=== PATIENT | male | born 1940 | race Caucasian/White ===

== ENCOUNTER → 2022-12-18 | Outpatient (CLI) | payer OTHER ==
[~2022-12-18] MED LIST: ATOR10 PO; AZIT500 PO; CEFD300 PO; DILT120ERA PO; ELIQUIS5 M2 PO; Keppra100 MG/1 M PO
[2022-12-18 15:42] LABS: BASOPHILS ABSOLUTE AUTO 0.03 K/mm3 (0.00-0.23); BASOPHILS PERCENT AUTO 1 % (0-2); EOSINOPHILS ABSOLUTE AUTO 0.14 K/mm3 (0.00-0.68); EOSINOPHILS PERCENT AUTO 2 % (0-6); Hematocrit 38.4 % (37.0-53.0); Hemoglobin 12.6 g/dL (13.5-17.5); IMMATURE GRAN ABSOLUTE AUTO 0.01 K/mm3 (0.00-0.10); IMMATURE GRAN PERCENT AUTO 0 % (0-1); LYMPHOCYTES ABSOLUTE AUTO 1.23 K/mm3 (0.84-5.20); LYMPHOCYTES PERCENT AUTO 21 % (21-46); MONOCYTES ABSOLUTE AUTO 0.51 K/mm3 (0.16-1.47); MONOCYTES PERCENT AUTO 9 % (4-13); Mean Corpuscular HGB 30.9 pg (26.0-34.0); Mean Corpuscular HGB Conc 32.8 g/dL (31.5-36.5); Mean Corpuscular Volume 94 fL (80-100); Mean Platelet Volume 10.7 fL (9.1-12.4); NEUTROPHILS ABSOLUTE AUTO 3.98 K/mm3 (1.96-9.15); NEUTROPHILS PERCENT AUTO 68 % (41-73); Platelet Count 181 K/mm3 (150-400); RDW Coefficient Variation 13.6 % (11.7-14.2); RDW Standard Deviation 46.5 fL (35.1-46.3); Red Blood Cell Count 4.08 M/mm3 (4.30-5.90)
[2022-12-18 16:01] LABS: Albumin, Blood 3.3 g/dL (3.4-5.0); Albumin/Globulin Ratio 0.8 (0.8-1.8); Bilirubin, Total 0.4 mg/dL (0.1-1.0); Bun/Creatinine Ratio 33.3 (12.0-20.0); Calcium, Blood 9.6 mg/dL (8.5-10.1); Creatinine, Blood 0.9 mg/dL (0.60-1.20); Globulin, Blood 3.9 g/dL (2.2-4.0); Potassium, Blood 4.5 mmol/L (3.5-5.5); Total Protein, Blood 7.2 g/dL (6.4-8.2)
== END | disposition home or self-care (01) ==
LOC: LAB SHORT 15:36
PROVIDERS: Family Medicine
DX: R55 Syncope and collapse (principal)
CPT/HCPCS: 80053; 84484; 85025

== ENCOUNTER 2024-12-04 13:45 | Emergency (ER) | payer OTHER ==
[~2024-12-04] VITALS: Ht 172.7 cm; Wt 69.8 kg
[2024-12-04 13:58] VITALS: BP 132/74
== END 2024-12-04 16:12 | disposition home or self-care (01) ==
LOC: ER 13:45
DX: K94.23 Gastrostomy malfunction (principal); I10 Essential (primary) hypertension; E78.5 Hyperlipidemia, unspecified; Z86.73 Personal history of transient ischemic attack (TIA), and cerebral infarction without residual deficits; Z79.899 Other long term (current) drug therapy; Z88.0 Allergy status to penicillin
CPT/HCPCS: 43762; 99282-25

== ENCOUNTER 2024-12-07 14:06 | Emergency (ER) | payer OTHER ==
[~2024-12-07] VITALS: Ht 172.7 cm; Wt 72.1 kg
[2024-12-07 14:19] VITALS: BP 140/75
== END 2024-12-07 15:31 | disposition home or self-care (01) ==
LOC: ER 14:06
DX: Z43.1 Encounter for attention to gastrostomy (principal); I10 Essential (primary) hypertension; I48.91 Unspecified atrial fibrillation; Z79.01 Long term (current) use of anticoagulants; Z79.899 Other long term (current) drug therapy; Z85.01 Personal history of malignant neoplasm of esophagus
CPT/HCPCS: 49465; 99283-25; Q9963

== ENCOUNTER 2024-12-11 13:41 | Emergency (ER) | payer OTHER ==
[~2024-12-11] VITALS: Ht 170.2 cm; Wt 71.2 kg
[2024-12-11 14:27] LABS: BASOPHILS ABSOLUTE AUTO 0.02 K/mm3 (0.00-0.23); BASOPHILS PERCENT AUTO 0 % (0-2); EOSINOPHILS ABSOLUTE AUTO 0.06 K/mm3 (0.00-0.68); EOSINOPHILS PERCENT AUTO 1 % (0-6); Hematocrit 40.8 % (37.0-53.0); Hemoglobin 13.4 g/dL (13.5-17.5); IMMATURE GRAN ABSOLUTE AUTO 0.01 K/mm3 (0.00-0.10); IMMATURE GRAN PERCENT AUTO 0 % (0-1); LYMPHOCYTES ABSOLUTE AUTO 0.95 K/mm3 (0.84-5.20); LYMPHOCYTES PERCENT AUTO 14 % (21-46); MONOCYTES ABSOLUTE AUTO 0.56 K/mm3 (0.16-1.47); MONOCYTES PERCENT AUTO 8 % (4-13); Mean Corpuscular HGB 30.7 pg (26.0-34.0); Mean Corpuscular HGB Conc 32.8 g/dL (31.5-36.5); Mean Corpuscular Volume 93 fL (80-100); Mean Platelet Volume 10.3 fL (9.1-12.4); NEUTROPHILS ABSOLUTE AUTO 5.21 K/mm3 (1.96-9.15); NEUTROPHILS PERCENT AUTO 77 % (41-73); Platelet Count 213 K/mm3 (150-400); RDW Coefficient Variation 13.8 % (11.7-14.2); RDW Standard Deviation 47.8 fL (35.1-46.3); Red Blood Cell Count 4.37 M/mm3 (4.30-5.90); White Blood Cell Count 6.81 K/mm3 (4.00-11.30)
[2024-12-11 14:51] LABS: Albumin, Blood 3.3 g/dL (3.4-5.0); Albumin/Globulin Ratio 0.9 (0.8-1.8); Bilirubin, Total 0.5 mg/dL (0.1-1.0); Bun/Creatinine Ratio 36.1 (12.0-20.0); Calcium, Blood 8.8 mg/dL (8.5-10.1); Creatinine, Blood 0.78 mg/dL (0.60-1.20); Globulin, Blood 3.8 g/dL (2.2-4.0); Potassium, Blood 4.3 mmol/L (3.5-5.5); Total Protein, Blood 7.1 g/dL (6.4-8.2)
[2024-12-11 17:06] VITALS: BP 116/62
== END 2024-12-11 17:15 | disposition home or self-care (01) ==
LOC: ER 13:41
PROVIDERS: Student in an Organized Health Care Education/Training Program
DX: I95.9 Hypotension, unspecified (principal); Z88.1 Allergy status to other antibiotic agents; Z79.01 Long term (current) use of anticoagulants; Z79.899 Other long term (current) drug therapy; I48.91 Unspecified atrial fibrillation; E78.5 Hyperlipidemia, unspecified
CPT/HCPCS: 71046; 80053; 83880; 84484; 85025; 93005; 93010; 99285-25

== ENCOUNTER → 2024-12-11 | Outpatient (CLI) | payer MEDICARE, OTHER ==
[2024-12-11 12:51] LABS: BASOPHILS ABSOLUTE AUTO 0.03 K/mm3 (0.00-0.23); BASOPHILS PERCENT AUTO 1 % (0-2); EOSINOPHILS ABSOLUTE AUTO 0.05 K/mm3 (0.00-0.68); EOSINOPHILS PERCENT AUTO 1 % (0-6); Hematocrit 39.6 % (37.0-53.0); Hemoglobin 13.2 g/dL (13.5-17.5); IMMATURE GRAN ABSOLUTE AUTO 0.01 K/mm3 (0.00-0.10); IMMATURE GRAN PERCENT AUTO 0 % (0-1); LYMPHOCYTES PERCENT AUTO 12 % (21-46); MONOCYTES ABSOLUTE AUTO 0.55 K/mm3 (0.16-1.47); MONOCYTES PERCENT AUTO 8 % (4-13); Mean Corpuscular HGB 30.9 pg (26.0-34.0); Mean Corpuscular HGB Conc 33.3 g/dL (31.5-36.5); Mean Corpuscular Volume 93 fL (80-100); Mean Platelet Volume 10.7 fL (9.1-12.4); NEUTROPHILS ABSOLUTE AUTO 5.15 K/mm3 (1.96-9.15); NEUTROPHILS PERCENT AUTO 78 % (41-73); Platelet Count 216 K/mm3 (150-400); RDW Coefficient Variation 14.2 % (11.7-14.2); RDW Standard Deviation 47.6 fL (35.1-46.3); Red Blood Cell Count 4.27 M/mm3 (4.30-5.90); White Blood Cell Count 6.59 K/mm3 (4.00-11.30)
[2024-12-11 13:04] LABS: Albumin, Blood 3.1 g/dL (3.4-5.0); Albumin/Globulin Ratio 0.8 (0.8-1.8); Bilirubin, Total 0.5 mg/dL (0.1-1.0); Bun/Creatinine Ratio 31.5 (12.0-20.0); Calcium, Blood 9.3 mg/dL (8.5-10.1); Creatinine, Blood 0.92 mg/dL (0.60-1.20); Magnesium, Blood 2.4 mg/dL (1.6-2.4); Potassium, Blood 5.6 mmol/L (3.5-5.5); Total Protein, Blood 7.1 g/dL (6.4-8.2)
== END | disposition home or self-care (01) ==
LOC: LAB 12:48 → LAB SHORT 12:48
PROVIDERS: Physician Assistant
DX: I95.9 Hypotension, unspecified (principal); R53.83 Other fatigue; R03.1 Nonspecific low blood-pressure reading
CPT/HCPCS: 80053; 83735; 84484; 85025

== ENCOUNTER 2025-01-06 20:41 | Inpatient (IN) | payer OTHER ==
[~2025-01-06] VITALS: Ht 165.1 cm; Wt 74.0 kg
[~2025-01-06 20:41] MED LIST changes: -Keppra100 MG/1 M PO; +LEVE500 PO
[2025-01-06 21:21] LABS: BASOPHILS ABSOLUTE AUTO 0.01 K/mm3 (0.00-0.23); BASOPHILS PERCENT AUTO 0 % (0-2); EOSINOPHILS ABSOLUTE AUTO 0.03 K/mm3 (0.00-0.68); EOSINOPHILS PERCENT AUTO 0 % (0-6); Hematocrit 37.8 % (37.0-53.0); Hemoglobin 12.3 g/dL (13.5-17.5); IMMATURE GRAN ABSOLUTE AUTO 0.03 K/mm3 (0.00-0.10); IMMATURE GRAN PERCENT AUTO 0 % (0-1); LYMPHOCYTES ABSOLUTE AUTO 0.72 K/mm3 (0.84-5.20); LYMPHOCYTES PERCENT AUTO 8 % (21-46); MONOCYTES ABSOLUTE AUTO 0.94 K/mm3 (0.16-1.47); MONOCYTES PERCENT AUTO 10 % (4-13); Mean Corpuscular HGB 30.3 pg (26.0-34.0); Mean Corpuscular HGB Conc 32.5 g/dL (31.5-36.5); Mean Corpuscular Volume 93 fL (80-100); Mean Platelet Volume 10.2 fL (9.1-12.4); NEUTROPHILS ABSOLUTE AUTO 7.56 K/mm3 (1.96-9.15); NEUTROPHILS PERCENT AUTO 81 % (41-73); Platelet Count 216 K/mm3 (150-400); RDW Standard Deviation 47.9 fL (35.1-46.3); Red Blood Cell Count 4.06 M/mm3 (4.30-5.90); White Blood Cell Count 9.29 K/mm3 (4.00-11.30)
[2025-01-06 21:40] LABS: Albumin, Blood 3.3 g/dL (3.4-5.0); Albumin/Globulin Ratio 0.9 (0.8-1.8); Bilirubin, Total 0.5 mg/dL (0.1-1.0); Bun/Creatinine Ratio 53.2 (12.0-20.0); Calcium, Blood 9.1 mg/dL (8.5-10.1); Creatinine, Blood 0.68 mg/dL (0.60-1.20); Globulin, Blood 3.8 g/dL (2.2-4.0); Potassium, Blood 4.4 mmol/L (3.5-5.5); Total Protein, Blood 7.1 g/dL (6.4-8.2)
[2025-01-07] MEDS ORDERED: Azithromycin 500 MG in NS 250 ML IV ONE (01:25)
[2025-01-07] MEDS ORDERED: Ipratropium/Albuterol SulF 2.5-0.5MG/3 ML Amp INH ONE (01:25)
[2025-01-07] MEDS ORDERED: CefTRIAXone Sodium 1,000 MG in NS 50 ML IV ONE (01:25)
[2025-01-07] MEDS ORDERED: Bisacodyl 10 MG Supp PR PRN (04:20)
[2025-01-07] MEDS ORDERED: Ipratropium/Albuterol SulF 2.5-0.5MG/3 ML Amp INH SCH (04:20)
[2025-01-07] MEDS ORDERED: CefTRIAXone Sodium 1,000 MG in NS 100 ML IV ONE (05:55)
[2025-01-07 06:00] VITALS: BP 127/77
[2025-01-07] MEDS ORDERED: NS 250 ML IV PRN (06:25)
--- NOTE | 2025-01-07 06:29 | NUR ---
SHIFT SUMMARY PT UP FROM ER AT 0534 THIS AM. PT SOB WTIH INCREASED WORK OF BREATHING, AUDIBLE CRACKLES HEARD. PT UNABLE TO CLEAR ANY SECRETIONS WITH YANKOUR. RT CALLED AND DEEP SUCTIONED PT FOR THICK WILSON SECRETIONS. RESPIRATORY PANEL AND SPUTUM CULTURE SENT TO LAB. PT UNABLE TO SAY MORE THAN 1-2 WORDS DUE TO WORK OF BREATHING. PT WITH HOB ELEVATED, SITTER AT BEDSIDE TO ASSURE HIS O2 REMAIANS ON. PT CURRENTLY ON 7L HIGH FLOW NC WITH SATS > 94%. RESPIRATIONS 26-32 BPM. CREDIT REPORT CHECKER NOTIFIED OF MEWS SCORE OF 4 UPON ADMISSION. SEIZURE PADS PLACED ON BED FOR HX OF SEIZURES. BED IN LOWEST POSITION, CALL LIGHT WITHIN REACH, SIDERAILS UP X2.
[2025-01-07 08:38] LABS: Adenovirus Not Detected (NOT DETECT); Coronavirus 229E Not Detected (NOT DETECT); Coronavirus HKU1 Not Detected (NOT DETECT); Coronavirus NL63 Not Detected (NOT DETECT); Coronavirus OC43 Not Detected (NOT DETECT); Human Metapneumovirus Not Detected (NOT DETECT); Human Rhinovirus/Enterovirus Not Detected (NOT DETECT); Influenza A/2009-H1 Not Detected (NOT DETECT); Influenza A/H1 Not Detected (NOT DETECT); Influenza A/H3 Not Detected (NOT DETECT); Influenza B Not Detected (NOT DETECT); Parainfluenza Virus 1 Not Detected (NOT DETECT); Parainfluenza Virus 2 Not Detected (NOT DETECT); Parainfluenza Virus 3 Not Detected (NOT DETECT); SARS-Cov-2 (COVID-19), BioFire Not Detected (NOT DETECT)
[2025-01-07 08:39] LABS: Bordetella pertussis Not Detected (NOT DETECT); Chlamydophila pneumoniae Not Detected (NOT DETECT); Mycoplasma pneumoniae Not Detected (NOT DETECT); Parainfluenza Virus 4 Not Detected (NOT DETECT); Respiratory Syncytial Virus Not Detected (NOT DETECT)
[2025-01-07] MEDS ORDERED: Apixaban 5 MG Tab PO SCH (09:00)
[2025-01-07] MEDS ORDERED: Atorvastatin 40 MG Tab PO SCH (09:00)
[2025-01-07] MEDS ORDERED: LevETIRAcetam 100 MG/ML 5ML ORAL SYR PO SCH (09:00)
[2025-01-07] MEDS ORDERED: dilTIAZem HCL 120 MG CAP.CD PO SCH (09:00)
[2025-01-07] MEDS ORDERED: Sennosides 8.6 MG Tab PO SCH (09:00)
[2025-01-07] MEDS ORDERED: Doxycycline Hyclate 100 MG TAB PO SCH (11:00)
[2025-01-07] MEDS ORDERED: Magnesium Hydroxide Conc 10 ML UDC PT PRN (12:05)
[2025-01-07] MEDS ORDERED: Docusate Sodium Liquid 100 MG UDC PT PRN (12:05)
[2025-01-07] MEDS ORDERED: EPINEPHrine HCL 11.25 MG/0.5 ML VIAL INH SCH (12:30)
[2025-01-07] MEDS ORDERED: VITAMIN D5000 UNIT PO (13:40)
[2025-01-07] MEDS ORDERED: ACET325 PO (13:40)
[2025-01-07] MEDS ORDERED: EPINEPHrine HCL 11.25 MG/0.5 ML VIAL INH PRN (14:20)
[2025-01-07 14:26] VITALS: BP 137/68
--- NOTE | 2025-01-07 15:15 | NUR ---
AT APPROX 1330 PT ASPIRATED ON HIS TUBE FEED. THE TUBE FEED WAS IMMEDIATELY STOPPED, RT TO SUCTION TUBE FEEDING OUT OF LUNGS. PT MEDICATED PER EMAR. PT VERBALIZED HE FELT LIKE HE WAS RUNNING A FEVER. TEMP 100.3. MD NOTIFIED OF ASPIRATION AND ELEVATED TEMPERATURE. CARE CONTINUES-TUBE FEED REMAINS OFF.
[2025-01-07] MEDS ORDERED: Acetaminophen 325 MG TABLET PT PRN (16:55)
--- NOTE | 2025-01-07 18:05 | NUR ---
SHIFT NOTE: PT A/OX4 ABLE TO MAKE NEEDS KNOWN. HE IS IMPULSIVE AND GETS OUT OF BED WITHOUT ASSISTANCE. THIS RN HAS EDUCATED ON NEED TO CALL FOR ASSISTANCE TO AVOID FALLS. BED ALARM ON FOR SAFETY. HE IS HARD TO UNDERSTAND DUE TO A SOFT RASPY VOICE. PT HAS SUCTION SET UP FOR THICK SECRETIONS. HE HAS A PRODUCTIVE COUGH BUT HAS TROUBLE GETTING IT UP. HE WAS TITRATED FROM 7L TO 4L NC TO MAINTAIN SPO2>90%. HE IS CONT AND AMBULATES TO THE BATHROOM TO VOID WITH 1P ASSITANCE. AND SON AT BEDSIDE AND ARE UPDATED ON PLAN OF CARE.
[2025-01-07 19:16] VITALS: BP 139/77
[2025-01-07] MEDS ORDERED: Protein Supplement 30 ML UD PT SCH (21:00)
[2025-01-07] MEDS ORDERED: LevETIRAcetam 100 MG/ML 5ML ORAL SYR PT SCH (21:00)
[2025-01-07] MEDS ORDERED: Azithromycin 500 MG in NS 250 ML IV SCH (21:00)
[2025-01-07] MEDS ORDERED: LevETIRAcetam 500 MG Tab PO SCH (21:00)
[2025-01-08] MEDS ORDERED: LORazepam 2 MG/ML 1ML Injection IV ONE (00:50)
[2025-01-08 04:10] VITALS: BP 95/63
--- NOTE | 2025-01-08 05:26 | NUR ---
SHIFT SUMMARY PT SLEPT INTERMITTENTLY DURING THE NIGHT. RESTLESS AND FIDGETY AT TIMES WHEN AWAKE. PT DEEP SUCTIONED PER RT X2 FOR C/O DIFFICULTY BREATHING AND FOR DESATURATION. PT WITH INCREASED RESTLESSLESS AND REQUESTING SOMETHING TO HELP HIM REST AT 0100- ATIVAN ORDERED AND GIVEN WITH PT ABLE TO REST, BUT DESATTED AFTERWARDS DUE TO TONGUE PARTIALLY OBSTRUCTING AIRWAY. PT REPOSITIONED, O2 INCREASED FROM 4L TO 7L, AND RT CAME TO EVALUATE PT. RT RECOMMENDED TRYING NASAL TRUMPET AND IF THAT NOT EFFECTIVE TO TRY BIPAP. DECK ENGINEER PROVIDER AGREED TO PLAN AND NASAL TRUMPET/ OXYMASK PLACED PER RT WITH IMPROVED RESPIRATIONS. O2 DOWN TO 4LNC. PT MORE AWAKE AT 0430 AND NASAL TRUMPET REMOVED AT 0500 PER RT. PT BACK TO 4LNC. LUNGS CONTINUE TO HAVE MOIST CRACKLES. BED IN LOWEST POSITION, BED ALARM ON, YANKOUR SUCTION AND CALL LIGHT WITHIN REACH, SIDERAILS UP X2.
[2025-01-08] MEDS ORDERED: CefTRIAXone Sodium 2,000 MG in NS 100 ML IV SCH (06:00)
[2025-01-08 06:11] LABS: BASOPHILS ABSOLUTE AUTO 0.02 K/mm3 (0.00-0.23); BASOPHILS PERCENT AUTO 0 % (0-2); EOSINOPHILS ABSOLUTE AUTO 0.01 K/mm3 (0.00-0.68); EOSINOPHILS PERCENT AUTO 0 % (0-6); Hematocrit 34.5 % (37.0-53.0); Hemoglobin 11.3 g/dL (13.5-17.5); IMMATURE GRAN ABSOLUTE AUTO 0.03 K/mm3 (0.00-0.10); IMMATURE GRAN PERCENT AUTO 0 % (0-1); LYMPHOCYTES ABSOLUTE AUTO 0.52 K/mm3 (0.84-5.20); LYMPHOCYTES PERCENT AUTO 5 % (21-46); MONOCYTES ABSOLUTE AUTO 0.74 K/mm3 (0.16-1.47); MONOCYTES PERCENT AUTO 7 % (4-13); Mean Corpuscular HGB 31.4 pg (26.0-34.0); Mean Corpuscular HGB Conc 32.8 g/dL (31.5-36.5); Mean Corpuscular Volume 96 fL (80-100); Mean Platelet Volume 10.7 fL (9.1-12.4); NEUTROPHILS ABSOLUTE AUTO 8.83 K/mm3 (1.96-9.15); NEUTROPHILS PERCENT AUTO 87 % (41-73); Platelet Count 193 K/mm3 (150-400); RDW Coefficient Variation 14.3 % (11.7-14.2); RDW Standard Deviation 50.4 fL (35.1-46.3); White Blood Cell Count 10.15 K/mm3 (4.00-11.30)
[2025-01-08 06:29] LABS: Bun/Creatinine Ratio 32.9 (12.0-20.0); Calcium, Blood 8.9 mg/dL (8.5-10.1); Creatinine, Blood 0.76 mg/dL (0.60-1.20); Magnesium, Blood 2.4 mg/dL (1.6-2.4); Phosphorus, Blood 3.1 mg/dL (2.5-4.9); Potassium, Blood 4.6 mmol/L (3.5-5.5)
[2025-01-08 07:28] VITALS: BP 121/58
[2025-01-08] MEDS ORDERED: Cholecalciferol 1000 Unit Tablet (=25MCG) PT SCH (09:00)
[2025-01-08] MEDS ORDERED: GuaiFENesin 600 MG TabCR PO SCH (11:43)
[2025-01-08] MEDS ORDERED: GuaiFENesin 100 MG/5 ML 5ML UDC PT SCH (14:00)
--- NOTE | 2025-01-08 16:18 | NUR ---
COMPLETED LUNCH TUBE FEEDING 30 ML FLUSH BEFORE. 210 ML FEED BOLUS OVER ABOUT 15 MINUTES. 30 ML FLUSH AFTER. PATIENT TOLERATED OK. CONSISTENT MOIST WEAK COUGH T/O AND EVEN PRIOR TO START OF FEED. OXYGEN SATS MAINTAINED 93% ON 2L NC.
--- NOTE | 2025-01-08 17:09 | NUR ---
PT AND FAMILY HAVE QUESTIONS REGARDING CODE STATUS. INFORMATION AND READING MATERIALS PROVIDED TO FAMILY ON CPR VS DNR. THE PATIENT IS ADMITTEDLY PLEASANTLY CONFUSED. FAMILY MEMBERS STATE THEY HAVE NEVER FULLY UNDERSTOOD WHAT CPR ENTAILS, AND WERE THANKFUL FOR THE INFORMATION. AT THIS TIME, PT WILL REMAIN A DNR, AND FAMILY V/U THAT THEY CAN ASK FOLLOW UP QUESTIONS WITH PALLIATIVE CARE RN.
[2025-01-08 18:22] VITALS: BP 99/63
[2025-01-08 19:15] VITALS: BP 120/59
--- NOTE | 2025-01-08 19:23 | NUR ---
SUMMARY PATIENT RESTARTED ON TUBE FEED THIS AM. DR. TAMEZ AT BEDSIDE FOR FIRST ONE. SITTING UPRIGHT. DR. TAMEZ ORDERED TO START SLOW AND ADVANCE TOLERATED. PATIENT TOLERATED 120 ML AT BREAKFAST BEFORE IT STARTED SLOWING DOWN VIA BOLUS. 60 ML FLUSH BEFORE AND AFTER. PATIENT TOLERATED 210 ML AT LUNCH BEFORE FEED STARTED SLOWING DOWN. 60 ML FLUSH BEFORE AND AFTER. RT COMPLETED DEEP SUCTIONING ONCE THIS AM. WAS ABLE TO WEAN FROM 4L TO 2L NC, MAINTAINING SATS 93%. WAS RUNNING LATE ON DINNER FEED, ATTEMPTED TO SET PT UP ON PUMP FEED TO SEE IF HE COULD TOLERATE MORE VOLUME OVER A LONGER PERIOD. ADAPTER WAS NOT STAYING IN PLACE WITH THE AMOUNT OF PRESSURE WHEN PLACED. UNABLE TO COMPLETE VIA PUMP WILL HAVE TO DO BOLUS. HEAD WAITER/WAITRESS RN TO COMPLETE DINNER FEED TOLERATED. PT IMPULSIVE, DOES NOT CALL APPROPRIATELY, BED ALARM ON. 1 ASSIST WITH WALKER. PATIENT IS FAST WILL USE FURNITURE IF UNABLE TO GET IN ROOM FAST ENOUGH. CONTIENT URINE. HAS NOT HAD A BM SINCE BEING ADMITTED. PT UNSURE OF LAST BM, CAN NOT REMEMBER.
[2025-01-09 03:30] VITALS: BP 127/65
--- NOTE | 2025-01-09 06:39 | NUR ---
SHIFT SUMMARY PT SLEPT IN LESS THAN 30 MINUTE INCREMENTS DURING THE NIGHT. "DINNER" TUBE FEEDING DONE AT 1920 WITH 250ML JEVITY AND FLUSHES PER ORDER. 2LNC MAINTAINED THROUGH THE NIGHT WITH 02 SATS >90%. PT C/O INTERMITTENTLY "I CAN'T BREATHE", BUT MOSTLY ABLE TO COUGH UP SECRETIONS AND USE YANKOUR WITH ENCOURAGEMENT. DEEP SUCTIONED PER RT X1 DURING THE EVENING. PT VERY RESTLESS, ANXIOUS, AND AGITATED AND IMPULSIVE TONIGHT. THIS RN WAS IN PT'S ROOM PROVIDING VERBAL EMOTIONAL SUPPORT MULTIPLE TIMES DURING THE NIGHT. PT INTERMITTENTLY IN BED AND IN THE CHAIR. PT CURRENTLY IN THE CHAIR, CHAIR ALARM ON, CALL LIGHT AND YANKOUR SUCTION WITHIN REACH.
--- NOTE | 2025-01-09 07:33 | NUR ---
PATIENT IS VERY ANXIOUS/RESTLESS THIS AM. FEELS SOB RELATED TO ANXIETY. NOTFIED DR. TAMEZ ABOUT PATIENT RECEIVING IV ATIVAN 0.5 MG TWO NIGHTS AGO BUT THIS CAUSED HIM TO SLEEP HEAVILY AND TONGUE TO OBSTRUCT AIRWAY. DR. TAMEZ TO REVIEW CHART
[2025-01-09] MEDS ORDERED: Morphine Sulfate 20 MG/1ML 1 ML Oral Syringe SL STA (08:12)
[2025-01-09] MEDS ORDERED: Morphine Sulfate 20 MG/1ML 1 ML Oral Syringe SL PRN ×2 (09:00→12:20)
[2025-01-09 09:45] LABS: BASOPHILS ABSOLUTE AUTO 0.02 K/mm3 (0.00-0.23); BASOPHILS PERCENT AUTO 0 % (0-2); EOSINOPHILS ABSOLUTE AUTO 0.08 K/mm3 (0.00-0.68); EOSINOPHILS PERCENT AUTO 1 % (0-6); Hematocrit 37.1 % (37.0-53.0); Hemoglobin 11.9 g/dL (13.5-17.5); IMMATURE GRAN ABSOLUTE AUTO 0.02 K/mm3 (0.00-0.10); IMMATURE GRAN PERCENT AUTO 0 % (0-1); LYMPHOCYTES ABSOLUTE AUTO 0.56 K/mm3 (0.84-5.20); LYMPHOCYTES PERCENT AUTO 7 % (21-46); MONOCYTES ABSOLUTE AUTO 0.69 K/mm3 (0.16-1.47); MONOCYTES PERCENT AUTO 9 % (4-13); Mean Corpuscular HGB 30.9 pg (26.0-34.0); Mean Corpuscular HGB Conc 32.1 g/dL (31.5-36.5); Mean Corpuscular Volume 96 fL (80-100); Mean Platelet Volume 10.6 fL (9.1-12.4); NEUTROPHILS ABSOLUTE AUTO 6.54 K/mm3 (1.96-9.15); NEUTROPHILS PERCENT AUTO 83 % (41-73); Platelet Count 192 K/mm3 (150-400); RDW Coefficient Variation 14.2 % (11.7-14.2); RDW Standard Deviation 49.9 fL (35.1-46.3); Red Blood Cell Count 3.85 M/mm3 (4.30-5.90); White Blood Cell Count 7.91 K/mm3 (4.00-11.30)
[2025-01-09 10:04] LABS: Calcium, Blood 9.2 mg/dL (8.5-10.1); Creatinine, Blood 0.68 mg/dL (0.60-1.20); Potassium, Blood 4.4 mmol/L (3.5-5.5)
--- NOTE | 2025-01-09 12:16 | NUR ---
ATTEMTPED TO GIVE MORNING MEDS THROUGH PEG TUBE. PATIENT WAS SITTING UP IN BED. BECOMING INCREASINGLY SOB. SOUNDED LIKE HE WAS OBSTRUCTING. RT WAS CALLED AND CAME TO DO DEEP SUCTIONING. RT STATED IF DEEP SUCTIONING DIDNT WORK THEYD CALL CRRT TO INTUBATE. DEEP SUCTIONING DID ALLOW PATIENT TO BREATHE BETTER. TUBE FEEDING HELD THIS AM DUE TO ASPIRATING. WILL NOTIFY PROVIDER. [facility] NURSE CALLED ONCE FAMILY ARRIVED TO GO OVER FUTURE PLAN AND PATIENT HAD VOICED TO ME HE DID NOT WANT TO BE INTUBATED YESTERDAY.
[2025-01-09] MEDS ORDERED: Polyethylene Glycol 3350 17 gm PT SCH (13:00)
--- NOTE | 2025-01-09 14:16 | NUR ---
CASE CONFERENCE: MET WITH PT'S FAMILY AND DR. TAMEZ TODAY. WE DISCUSSED PT'S ONGOING ISSUES WITH DYSPHAGIA, ASPIRATION, AND PNEUMONIA. 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 HE ALSO SUFFERS FROM ANXIETY RELATED TO SHORTNESS OF BREATH, THIS IS NOT NEW. HE IS REQUIRING DEEP SUCTION INTERMITTENTLY FROM RT, AND IS CURRENTLY NOT TOLERATING TUBE FEEDS. WE DISCUSSED PLAN OF CARE: WILL CONTINUE MONITORING PT'S CONDITION, AND REASSESS CARE PLAN AND GOALS DEPENDING ON HOW PT RESPONDS TO TREATMENTS.
--- NOTE | 2025-01-09 19:46 | NUR ---
SUMMARY THIS MORNING AROUND 11AM WITH LATE MED ADMINISTRATION PT WAS SITTING UP HIGH IN BED. STARTED TO COUGH AND BECOME INCREASINGLY SOB. UNABLE TO COUGH TO CLEAR AIRWAY. RT CALLED AND COMPLETED DEEP SUCTIONING. HELD AM TUBE FEEDING AND NOON TUBE FEEDING. STAT CHEST X-RAY AND ABD X-RAY COMPLETED. PT DOESN'T SEEM TO HAVE WORSENING ASPIRATION OR AN OBSRTRUCTION PER DR. TAMEZ HOLD TUBE FEED TODAY. ADMINISTER MIRILAX TO CLEAR MOD STOOL IN COLON, ALONG WITH OTHER BOWEL REGIMEN ORDERS TO START TONIGHT AND TUBE FEEDING WILL RESUME TOMORROW. IF PT IS UNABLE TO CLEAR SECRETIONS DR. TAMEZ RECOMMENDED RT TO COMPLETE DEEP SUCTIONING MORE FREQUENTLY TO CLEAR SECRETIONS FOR HIM. PRN ROXANOL ORDERED FOR ANX/AIR HUNER.
[2025-01-09] MEDS ORDERED: Docusate Sodium Liquid 100 MG UDC PT SCH (21:00)
[2025-01-09] MEDS ORDERED: Sennosides 8.6 MG Tab PT SCH (21:00)
--- NOTE | 2025-01-10 04:55 | NUR ---
SHIFT SUMMARY; PATIENT SLEPT IN SHORT INTERVALS, BUT DID NOT TRY TO GET OUT OF BED. JUST SAT ON SIDE OF BED. HAD TO HAVE RT DO DEEP SUCTIONING JUST ONCE SO FAR THIS SHIFT. REMAINS NPO, GIVEN JUST WATER ABOUT EVERY 3 HOURS TONIGHT THRU PEG TUBE. TOLERATED WELL. MEDICATED FOR PAIN AT HS.TELE SR TO . PULSE OX 90-97 ON 3L/NC/O2. GIVEN MILK OF MAG WITH HS MEDS. NO BM SO FAR THIS SHIFT.
[2025-01-10 05:29] LABS: Hematocrit 37.7 % (37.0-53.0); Mean Corpuscular HGB 30.9 pg (26.0-34.0); Mean Corpuscular HGB Conc 31.8 g/dL (31.5-36.5); Mean Corpuscular Volume 97 fL (80-100); Mean Platelet Volume 10.6 fL (9.1-12.4); Platelet Count 213 K/mm3 (150-400); RDW Coefficient Variation 13.9 % (11.7-14.2); RDW Standard Deviation 49.6 fL (35.1-46.3); Red Blood Cell Count 3.88 M/mm3 (4.30-5.90)
[2025-01-10 05:48] LABS: Bun/Creatinine Ratio 39.7 (12.0-20.0); Calcium, Blood 8.9 mg/dL (8.5-10.1); Creatinine, Blood 0.78 mg/dL (0.60-1.20); Potassium, Blood 4.6 mmol/L (3.5-5.5)
[2025-01-10] MEDS ORDERED: Metoprolol Tartrate 1 MG/ML 5 ML VIAL IV ONE (06:52)
[2025-01-10] MEDS ORDERED: Naloxone HCl 1MG / ML 2ML SYR IV ONE (06:52)
[2025-01-10 07:32] VITALS: BP 108/68
--- NOTE | 2025-01-10 14:32 | NUR ---
RN NOTIFIED DR. TAMEZ THAT PT'S G-TUBE IS NOT COMPLETELY DRAINING TO GRAVITY. PT DOES NOT COMPLAIN OF FEELING FULL OR ANY PAIN. HIS O2 SATS ARE 95%, ON 3LPM VIA NC. RN ADMINISTERED 5MG ROXANOL SUBLINGUAL DUE TO AIR HUNGER. RESP THERAPY DID COMPLETE DEEP SUCTIONING, WITH OUT ANY SECRETIONS NOTED. RESP THERAPIST REPORTS THAT LUNGS AND THROAT SOUND CLEAR TO HER AUSCULTATION. RN NOTIFIED DR. TAMEZ OF GTUBE NOT COMPLETING DRAINING. DR. TAMEZ WITH ORDERS TO HOLD FURTHER MED ADMINISTRATION OR TUBE FEEDINGS UNTIL EXTENSION TUBING DRAINS.
[2025-01-10 15:45] VITALS: BP 101/57
--- NOTE | 2025-01-10 16:22 | NUR ---
VERBAL CONSULT WITH DR. TAMEZ - PT'S TUBE FEEDING HAS DRAINED COMPLETELY TO GRAVITY, ACCESSORY TUBE IS CLEAR. DR. TAMEZ WITH ORDERS TO TRY THE 1700 FEEDING TONIGHT, BUT ADMINISTER 200 OF JEVITY, WITH THE 100 ML WATER FLUSH BEFORE AND AFTER.
--- NOTE | 2025-01-10 17:44 | NUR ---
RN ATTEMPTED A 1700 TUBE FEEDING - THE PLAN WAS TO ATTEMPT 200ML JEVITY 1.5, WITH A 100ML FLUSH BEFORE AND AFTER. RN ATTEMPTED A 50ML FREE WATER FLUSH, AND ALTHOUGH THE 50 ML INSTILLED, THE FLUID STARTED TO BACK UP IN THE ACCESSORY TUBE AGAIN. RN DID NOT CONTINUE WITH THE TUBE FEEDING. PT DENIES PAIN IN ABD OR FEELING FULL. OXYGEN SATS REMAIN 97% ON 3LPM VIA NC.
[2025-01-10] MEDS ORDERED: Lactobacil 2-S.Thermo-Bifido 1 1 Cap PT SCH (19:00)
[2025-01-10] MEDS ORDERED: MetroNIDAZOLE 500 MG Tab PT SCH (19:00)
[2025-01-10 19:28] VITALS: BP 125/62
--- NOTE | 2025-01-10 19:33 | NUR ---
AXEL IS NPO, RECEIVING TUBE FEEDINGS TO GRAVITY VIA PEG TUBE. 3LPM VIA NC, WHICH IS BASELINE. AXEL WILL BECOME ANXIOUS AND SOB WHEN HE FEELS CONGESTED, HE WILL SUCTION HIMSELF FOR COMFORT. RESP THERAPY PERFORMED DEEP SUCTIONING TWICE THIS SHIFT, DIDN'T RETURN ANY SECRETIONS. AXEL HAS AFIB, IS ON PULSE OX CONTINOUSLY, AND DENIES CHEST PAIN. HE RECEIVED PRN ROXANOL FOR AIR HUNGER ONCE THIS SHIFT. AXEL USES THE URINAL INDEPENDENTLY.
[2025-01-10] MEDS ORDERED: Scopolamine Hydrobromide Patch TOP PRN (20:30)
[2025-01-10] MEDS ORDERED: Morphine Sulfate 20 MG/1ML 1 ML Oral Syringe SL PRN (23:05)
[2025-01-11] MEDS ORDERED: Lactated Ringer's 1,000 ML IV ONE (00:14)
[2025-01-11] MEDS ORDERED: Morphine Sulfate 20 MG/1ML 1 ML Oral Syringe PO ONE (00:15)
[2025-01-11] MEDS ORDERED: Lactated Ringer's 500 ML IV ONE (00:15)
--- NOTE | 2025-01-11 02:16 | NUR ---
PATIENTS HEART RATE STAYED AT 160, ST, PER EKG, REPORTED TO DR LAMA, LR BOLUS AND ANOTHER DOSE OF ROXANOL GIVEN, HEART RATE NO 80-120S, PATIENT CONTINUES TO BE RESTLESS DUE TO EXTREME SOB, USING SUCTION INDEPEDANTLY, UNABLE TO TALK WITHOUT BECOMING SHORT OF BREATH, CALL LIGHT WITH IN REACH
[2025-01-11] MEDS ORDERED: Naloxone HCl 0.4MG / ML 1ML Vial ONE (03:02)
[2025-01-11 03:05] VITALS: BP 96/52
[2025-01-11 03:06] VITALS: BP 184/109
[2025-01-11] MEDS ORDERED: Naloxone HCl 0.4MG / ML 1ML Vial IV ONE ×2 (03:10)
[2025-01-11] MEDS ORDERED: levETIRAcetam 1,000 MG in NS 100 ML IV ONE (03:10)
[2025-01-11] MEDS ORDERED: Metoprolol Tartrate 1 MG/ML 5 ML VIAL IV ONE (03:10)
[2025-01-11 03:21] VITALS: BP 137/76
[2025-01-11] MEDS ORDERED: Morphine Sulfate 20 MG/1ML 1 ML Oral Syringe SL PRN ×2 (03:35→19:15)
--- NOTE | 2025-01-11 03:51 | NUR ---
JUST CAME TO PATIENTS BEDSIDE
--- NOTE | 2025-01-11 03:56 | NUR ---
1457 PATIENT FOUND UNRESPONSIVE, SEIZURE POSITIONING, PUPILS NOT RESTRICTING. PATIENT MEDICATED WITH NARCAN, KEPPRA, AND ROXANOL. BP INCREASED, BREATHING BEGAN, UNCORRIDINATED MOVEMENTS, OXYMASK ON, PATIENT CHANGED TO COMFORT CARE, FAMILY AT BEDSIDE NOW, PUPILS RESTRICTING, PATIENT NOT TRACKING WITH EYES, OPENS MOUTH FOR ORAL CARE, LOWER DENTURES REMOVED
[2025-01-11] MEDS ORDERED: Morphine Sulfate 20 MG/1ML 1 ML Oral Syringe PO PRN (04:30)
[2025-01-11] MEDS ORDERED: LORazepam 2 MG/ML 1ML Injection IV PRN ×2 (04:30→05:50)
--- NOTE | 2025-01-11 08:44 | NUR ---
CALLED TO ROOM BY PRIMARY RN FOR COMFORT CARE ASSESSMENT AND REVIEW OF MEDICATIONS. PT WAS TRANSITIONED TO COMFORT CARE EARLY THIS MORNING. FAMILY REPORT WHEN PT RECEIVED ROXANOL, THE MEDICATION DID NOT HAVE THE INTENDED EFFECT. PT'S AGGITATION INCREASED WITH ROXANOL. RIGIDITY AND ANXIETY APPEARED TO HAVE LESSENED WITH ATIVAN. PT IS OBTUNDED. FACE IS CHEUNG AND ASHEN. CAP REFILL > 5 SEC. EDUCATED FAMILY ON EOL S/SX AND WHAT TO EXPECT. VALIDATED PT'S 'S FEELING OF ANTICIPATORY GRIEF. PHONE CALL PLACED TO PROVIDER REQUESTING UPDATED COMFORT CARE ORDERS WITH RECOMMENDATION OF REPLACING ROXANOL WITH HYDROMORPHONE. PROVIDER HAS NOT SEEN THE PT THIS MORNING. ANTICIPATED NEW COMFORT CARE ORDERS EXPECTED LATER THIS MORNING. UPDATED PRIMARY RN.
[2025-01-11] MEDS ORDERED: Atropine Sulfate 1% Opth Soln 2ML BTL SL PRN (13:15)
[2025-01-11] MEDS ORDERED: HYDROmorphone HCl/Pf 1MG SYR IV PRN (13:15)
[2025-01-11] MEDS ORDERED: Acetaminophen 650 MG Supp PR PRN (13:15)
[2025-01-11] MEDS ORDERED: Promethazine HCl 25 MG Supp PR PRN (13:15)
--- NOTE | 2025-01-11 13:30 | NUR ---
UPDATED COMFORT CARE ORDERS PER VERBAL ORDERS RCV'D FROM PROVIDER. ADVISED BREAK NURSE RE: CHANGES TO ORDERS. PC TO REMAIN AVAILABLE NEEDED.
--- NOTE | 2025-01-11 16:52 | NUR ---
"Spiritual Care Visit | Comfort Care Nurse Request Pt. is on comfort care and is mostly not responsive. Many family are present at bedside. Facilitated a life review and listened with interest and empathy as the family verbalizes the nicolasa and foibles of the Pt. The mood of the room was mostly light. Prayed for the Pt. and gave a blessing to the family. Afterward, it was confirmed with family members that the Pt. had made some plans to have his ashes scattered at sea through the [employer], This infor was relayed to the nurses station as well as the Nursing Pediatric Neurologist."
[2025-01-11] MEDS ORDERED: LORazepam 1 MG Tab PO PRN (17:10)
[2025-01-11] MEDS ORDERED: OxyCODONE HCL 1 MG/ML 5MLUDC SL PRN (17:15)
[2025-01-11] MEDS ORDERED: LORazepam 1 MG Tab SL PRN (23:10)
--- NOTE | 2025-01-12 07:34 | NUR ---
ASSUMED CARE OF PATIENT, REPORT RECEIVED FROM SABRINA. PATIENT AT 0539 THIS AM. PER REPORT CHARGE NURSE AND DR LAMA NOTIFIED. FAMILY AT BEDSIDE AT TIME OF PASSING. FAMILY TOOK BELONGINGS HOME AND [employer] IS THE CONTACT FOR ARRANGEMENTS. CREMATION BOX LEFT WITH PATIENT TO SEND WITH HOME.
== END 2025-01-12 05:32 | DRG 871 ==
LOC: ER 20:41 → ERHOLD 01-07 04:19 → MEDS 01-07 04:19
PROVIDERS: Emergency Medicine; Internal Medicine; ADMIT Internal Medicine
PROC: 3E03329 Introduction of Other Anti-infective into Peripheral Vein, Percutaneous Approach (ICD-10-PCS; principal; 2025-01-07)
PROC: 3E033XZ Introduction of Vasopressor into Peripheral Vein, Percutaneous Approach (ICD-10-PCS; 2025-01-07)
PROC: 3E0G76Z Introduction of Nutritional Substance into Upper GI, Via Natural or Artificial Opening (ICD-10-PCS; 2025-01-07)
PROC: 5A0935A Assistance with Respiratory Ventilation, Less than 24 Consecutive Hours, High Flow/Velocity Cannula (ICD-10-PCS; 2025-01-07)
PROC: 0T9B70Z Drainage of Bladder with Drainage Device, Via Natural or Artificial Opening (ICD-10-PCS; 2025-01-11)
DX: A41.9 Sepsis, unspecified organism (principal); J18.9 Pneumonia, unspecified organism; J96.01 Acute respiratory failure with hypoxia; J69.0 Pneumonitis due to inhalation of food and vomit; C15.9 Malignant neoplasm of esophagus, unspecified; I48.20 Chronic atrial fibrillation, unspecified; Z51.5 Encounter for palliative care; Z66 Do not resuscitate; R65.20 Severe sepsis without septic shock; K59.00 Constipation, unspecified; G40.909 Epilepsy, unspecified, not intractable, without status epilepticus; E78.5 Hyperlipidemia, unspecified; I10 Essential (primary) hypertension; R13.10 Dysphagia, unspecified; C32.9 Malignant neoplasm of larynx, unspecified; I95.9 Hypotension, unspecified; F41.9 Anxiety disorder, unspecified; Z92.21 Personal history of antineoplastic chemotherapy; Z92.3 Personal history of irradiation; Z86.73 Personal history of transient ischemic attack (TIA), and cerebral infarction without residual deficits; Z88.0 Allergy status to penicillin; Z79.01 Long term (current) use of anticoagulants; Z87.891 Personal history of nicotine dependence; Z93.1 Gastrostomy status
CPT/HCPCS: 0202U; 31720; 36415; 71045; 71046; 71260; 74018; 80048; 80053; 83605; 83735; 84100; 84145; 85025; 85027; 87040; 87070; 87077; 87186; 87205; 93005; 93010; 94640; 94664; 94760; 94762; 96365; 96367; 99284-25; A9270; J0456; J0696; J1171; J1953; J2060; J2310; J7050; J7120; Q9967